=== PATIENT | female | born 1995 | race Caucasian/White ===

== ENCOUNTER 2023-01-07 17:54 | Emergency (ER) | payer MEDICAID ==
[~2023-01-07] VITALS: Ht 157.5 cm; Wt 52.3 kg
[2023-01-07 18:06] VITALS: BP 128/81
[2023-01-07] MEDS ORDERED: triamcinolone acetonide 0.5% cream 15gm TP STA (19:19)
[2023-01-07] MEDS ORDERED: triamcinolone acetonide 40mg/ml inj IM ONE (19:20)
[2023-01-07] MEDS ORDERED: TRIA15CR61 TOP (19:24)
[2023-01-07] MEDS ORDERED: PRED20TA PO (19:24)
== END 2023-01-07 20:03 | disposition home or self-care (01) ==
LOC: ER 17:55
DX: L23.7 Allergic contact dermatitis due to plants, except food (principal)
CPT/HCPCS: 96372; 99283; J3301